=== PATIENT | male | born 1965 | race Caucasian/White ===

== ENCOUNTER → 2016-10-14 | Outpatient (CLI) | payer OTHER ==
--- NOTE | 2016-10-14 15:18 | XR ---
EXAMINATION TYPE: XR shoulder complete RT DATE OF EXAM: 10/14/2016 3:13 PM CLINICAL HISTORY: pain TECHNIQUE: Three views of the right shoulder are obtained. COMPARISON: None FINDINGS: There is no acute fracture/dislocation evident. The acromioclavicular and glenohumeral earnestine int spaces appear mildly narrowed. The visualized ribs are intact and unremarkable. IMPRESSION: 1. There is no acute fracture or dislocation. ICD 10 NO FRACTURE, INITIAL EVALUATION
--- NOTE | 2016-10-14 15:20 | XR ---
EXAMINATION TYPE: XR thoracic spine complete DATE OF EXAM: 10/14/2016 3:14 PM CLINICAL HISTORY: pain TECHNIQUE: Frontal, lateral, and swimmer's view of thoracic spine are obtained. COMPARISON: None. FINDINGS: Thoracic spine show satisfactory alignment without evidence of acute fracture or dislocatio n. Vertebral body heights are preserved. Disc spaces demonstrate mild narrowing with mild spondylosi s. Visualized ribs are unremarkable. IMPRESSION: No acute fracture or dislocation is seen in the thoracic spine. ICD 10 NO FRACTURE, INIT IAL EVALUATION
== END | disposition home or self-care (01) ==
LOC: RADXRMAIN 14:53
PROVIDERS: ATTEND Emergency Medicine
DX: S23.3XXA Sprain of ligaments of thoracic spine, initial encounter (principal); X50.0XXA Overexertion from strenuous movement or load, initial encounter
CPT/HCPCS: 72072

== ENCOUNTER → 2021-04-24 | Outpatient (CLI) | payer BC, OTHER ==
[2021-04-24 12:22] VITALS: BP 131/78; PULSE 71; TEMP 98.1; BMI 48.1
--- NOTE | 2021-04-24 15:11 | P.BASOAP ---
Subjective Progress Note Date: 04/24/21 Principal diagnosis: Morbid obesity 55-year-old male known to our service. Patient had lap band performed 2004. Over the last 8 months or so he has had increasing episodes of regurgitation and dysphagia. No abdominal pain. Patient has done fairly well with his lap band. Preoperative lap band weight 520 Kierra weight 330 early 345. Patient thinks he has 3 mL in his band which holds 10 mL. Objective - Vital Signs Vital signs: Vital Signs Temp 98.1 F 04/24/21 12:18 Pulse 71 04/24/21 12:18 Resp BP 131/78 04/24/21 12:18 Pulse Ox Intake & Output 04/23/21 04/24/21 04/24/21 18:59 06:59 18:59 Weight 156.489 kg - Exam Abdomen: Soft, nontender, nondistended Assessment/Plan (1) Morbid obesity Narrative/Plan: 55-year-old male with regurgitation and dysphagia post lap band. Will empty the patient's lap band at this time. Plan esophagram at time of follow-up 1 month or so. Patient considering band conversion. Discussed sleeve gastrectomy and gastric bypass. Favor gastric bypass in his case. All questions answered. The patient's lap band port was palpated. The site was aseptically prepped. The Cerrato needle was advanced into the port. A total of 6 ml of fluid was removed. Band is now empty. Pressure was held and a sterile dressing was applied. Patient will contact us if dysphagia or regurgitation issues persist after emptying band. Plan: Date: 04/24/21 Initial Weight: Initial BMI: Current Weight: 156.489 kg Current BMI: 48.1 Type of Surgery: Total Volume in Band: 0 Previous Volume: Volume Removed: 6 Volume Added: Band Size:
== END ==
LOC: BARWHC3 11:57
PROVIDERS: ATTEND Surgery
DX: E66.01 Morbid (severe) obesity due to excess calories (principal); R13.10 Dysphagia, unspecified; Z98.84 Bariatric surgery status; Z68.42 Body mass index [BMI] 45.0-49.9, adult; Z88.0 Allergy status to penicillin
CPT/HCPCS: 99212

== ENCOUNTER → 2021-06-21 | Outpatient (CLI) | payer BC ==
--- NOTE | 2021-06-21 13:02 | FL ---
SINGLE CONTRAST ESOPHAGRAM: CLINICAL HISTORY: 56-year-old male R13.10, dysphagia. Patient with LAP-BAND placed 15 years ago with worsening reflux. Fill removed one month ago. TECHNIQUE: Single contrast exam performed thin barium. Total fluoroscopy time: 56 seconds. Total images: 14. FINDINGS: The lap-band device is properly positioned. The patient swallowed oral contrast without difficulty or delay. Esophageal peristalsis and motility are within normal limits. Laparoscopic banding device i s noted to be in place and is appropriately positioned in proximal stomach, just below Gastroesophag eal junction. There is good flow of contrast into the proximal stomach and then along the course of the lap band. No significant restriction to the passage of contrast. IMPRESSION: Satisfactory positioning of the lap band. Normal sized gastric pouch. No significant restriction to t he passage of contrast across the lap band.
== END | disposition home or self-care (01) ==
LOC: RADUSWWP 09:23
PROVIDERS: ATTEND Surgery
DX: R13.10 Dysphagia, unspecified (principal); Z98.84 Bariatric surgery status
CPT/HCPCS: 74220

== ENCOUNTER → 2021-06-21 | Outpatient (CLI) | payer BC ==
[2021-06-21 12:30] VITALS: BP 145/86; PULSE 86; TEMP 98.2; BMI 51.0
--- NOTE | 2021-06-21 13:21 | P.BASOAP ---
Subjective Progress Note Date: 06/21/21 Principal diagnosis: Morbid obesity Patient returns for reevaluation. Last visit the patient had 6 mL removed from his lap band. That resulted in full resolution of his reflux dysphagia and vomiting symptoms. Still feels mild fullness around his port site. Today's upper GI shows no evidence of obstruction. Patient is interested in band adjustment at this time. Objective - Vital Signs Vital signs: Vital Signs Temp 98.2 F 06/21/21 12:28 Pulse 86 06/21/21 12:28 Resp BP 145/86 06/21/21 12:28 Pulse Ox Intake & Output 06/20/21 06/21/21 06/21/21 18:59 06:59 18:59 Weight 166.015 kg - Exam Abdomen: Soft, nontender, nondistended Assessment/Plan (1) Morbid obesity Narrative/Plan: Patient doing well after entering the patient's band last visit. 3 mL will be added back to the band at this time. Patient and his are considering gastric bypass given the difficulties he has had with the band both then terms of poor weight loss and aggressive dysphagia. They will notify me with their decision. Plan: Date: 06/21/21 Initial Weight: Initial BMI: Current Weight: 166.015 kg Current BMI: 51.0 Type of Surgery: Total Volume in Band: 0 Previous Volume: Volume Removed: Volume Added: Band Size:
== END ==
LOC: BARWHC3 12:14
PROVIDERS: ATTEND Surgery
DX: E66.01 Morbid (severe) obesity due to excess calories (principal); Z68.43 Body mass index [BMI] 50.0-59.9, adult; Z88.0 Allergy status to penicillin
CPT/HCPCS: 99212

== ENCOUNTER → 2023-03-13 | Outpatient (CLI) | payer BC ==
--- NOTE | 2023-03-15 14:15 | MR ---
EXAMINATION TYPE: MR brain and iac wo/w con DATE OF EXAM: 03/13/2023 COMPARISON: None HISTORY: Tinnitus right ear, hearing loss bilateral, possible tumor TECHNIQUE: Multiplanar, multisequence images of the brain and brainstem is performed without and with IV contras t, utilizing 15 mL intravenous Gadavist . FINDINGS: The T1-weighted sagittal images midline structures including the craniovertebral junction relationshi ps appear normal. The ventricles, basal cisterns and sulci over convexities are within normal limits and there is no ma ss effect or shift of midline structures. There are a few tiny abnormal foci of abnormal signal intensity in the white matter both cerebral hem ispheres and within the left midbrain consistent with chronic ischemic white matter demyelination. Based on diffusion-weighted imaging, there is no acute ischemic event. There is diffuse enhancement of the right seventh/8th nerve within the internal auditory canal consis tent with an acoustic neuroma. There is no cerebellopontine angle mass. The left internal auditory ca nal and contents are normal. There is no pathological enhancement throughout the cerebral hemispheres or cerebellar hemispheres. The intraorbital contents appear normal and symmetric. Visualized paranasal sinuses and mastoid air cells are well aerated. IMPRESSION: Findings consistent with an acoustic neuroma of the right seventh/8th nerve complex within the right internal auditory canal.
== END | disposition home or self-care (01) ==
LOC: RADMRIMAIN 17:15
PROVIDERS: ATTEND Otolaryngology Otology & Neurotology
DX: H93.11 Tinnitus, right ear (principal); H90.3 Sensorineural hearing loss, bilateral
CPT/HCPCS: 70553; A9585

== ENCOUNTER → 2023-06-04 | Outpatient (CLI) | payer BC ==
[2023-06-04 14:44] VITALS: BP 136/86; PULSE 86; RESP 16; TEMP 98.6; BMI 56.7
--- NOTE | 2023-06-04 15:17 | P.HPBAR ---
Bariatric H&P - History & Physicial H&P Date: 06/04/23 History & Physicial: Visit/CC: Wanting band out Patient initial contact: Initial weight: 235.868 kg Initial weight in pounds: 520.00 Height: 5 ft 9 in Initial BMI: 76.8 Last weight: Current weight: 174.179 kg Current weight in pounds: 384.00 Current BMI: 56.7 Kuna body weight (based on NIH guidelines): 72.575 kg Excess body weight loss: 37.7% The patient is a 57 year-old M who presents for Bariatric Assessment. DATE OF SERVICE: 06/04/23 REASON FOR CONSULTATION: Initial bariatric evaluation. HISTORY OF PRESENT ILLNESS: Zechariah Lynch is a 58-year-old male who comes with lifelong morbid obesity. He has the gastric band for over 20 years. He wants the gastric bypass. He reports no success with band. He was 500 pounds and lost 200 pounds with lap band and gained weight during COVID. He has osteoarthritis of the knees and back. He has diabetes and is on metformin with diarrhea. He has as intolerance to adjustments of adjustable gastric band. He had prior upper scope. He reports rate clerk restriction. Last colonoscopy was is every 3 years for family history of colon cancer. He denies polyps. He reports no gallbladder. He has sleep apnea but does not have a CPAP machine. He wanted the sleeve initially but was advised to consider additional options for gastric bypass.. He wants weight loss. He wants to be 250 to 300 pounds. He denies dysphagia. He presents to me first time in consultation. He reports personal history of elevated LFTs. At height of 5 feet 9 inches, ideal body weight is 168 pounds. He comes in 383 pounds. Highest weight was 500 pounds with body mass index 74.0. Current body mass index is 56.7. He is 249 pounds overweight. PAST MEDICAL HISTORY: 1. Morbid obesity due to excess calories 2. Body mass index of 74.0 down to 56.7 3. Osteoarthritis of the knees. 4. Osteoarthritis of the lower back. 5. Diabetes type 2 6. Obstructive sleep apnea 7. Gastroesophageal reflux disease 8. Hypertensive heart disease PAST SURGICAL HISTORY: 1. Cholecystectomy 2. Adjustable gastric band placement, 2003 3. Repair of fractured female pelvic HOME MEDICATIONS: Home Medications Medication Instructions Recorded Confirmed Semaglutide [Rybelsus] 7 mg PO DAILY 06/04/23 06/04/23 ALLERGIES: Allergies Allergy/AdvReac Type Severity Reaction Status Date / Time Penicillins Allergy Dyspnea Verified 04/23/21 12:59 SOCIAL HISTORY: Past tobacco use. FAMILY HISTORY: No family history of ulcerative colitis disease or Crohn's disease. Family history of morbid obesity. No lupus in the family. No reports of stomach or esophageal cancer. REVIEW OF ORGAN SYSTEMS: CONSTITUTIONAL: At height of 5 feet 9 inches, ideal body weight is 168 pounds. He comes in 383 pounds. Highest weight was 500 pounds with body mass index 74.0. Current body mass index is 56.7. He is 249 pounds overweight. HEENT: Denies any active troubles with vision or hearing. ENDOCRINE: Has diabetes. No hypothyroidism. CARDIOVASCULAR: Past reports of palpitations or heart attacks or chest pain. Hypertensive heart disease RESPIRATORY: Has daytime somnolence. Denies chronic obstructive pulmonary disease. Obstructive sleep apnea GASTROINTESTINAL: Denies any bright red blood per rectum. No diarrhea. No constipation. Has gastroesophageal reflux disease. GENITOURINARY: Denies bladder urgency. No recent blood in urine MUSCULOSKELETAL: Has lower back pain and joint pain. Has osteoarthritis of the knees. NEURO: No headaches. No seizure disorders. PSYCH: Denies depression. No suicidal ideation. RHEUMATOLOGIC: No lupus. No rheumatoid arthritis. HEMATOLOGIC: Denies any abnormal bleeding or bruising. Denies past history of DVTs. SKIN: No rash. No skin cancer. PHYSICAL EXAM: VITAL SIGNS: Height 5 foot 9 inches, weight 384 pounds. BMI 56.7 Vital Signs Temp 98.6 F 06/04/23 14:28 Pulse 86 06/04/23 14:28 Resp 16 06/04/23 14:28 BP 136/86 06/04/23 14:28 Pulse Ox FiO2 GENERAL: Well-developed in no acute distress. HEENT: No scleral icterus. Extraocular movements grossly intact. Hears conversational speech. No nasal drainage. NECK: Supple without lymphadenopathy. CHEST: Nonlabored respirations with equal bilateral excursions. CARDIOVASCULAR: Regular rate and regular rhythm. Distal 2+ pulses. ABDOMEN: Obese, soft, nontender, nondistended. MUSCULOSKELETAL: No clubbing, cyanosis. NEURO: No focal or lateralizing signs. Cranial nerves 2 through 12 grossly within normal limits. PSYCH: Appropriate affect. Alert and oriented to person, place and time. SKIN: Good skin turgor. Well perfused. ASSESSMENT: 1. Morbid obesity due to excess calories 2. Body mass index of 74.0 down to 56.7 3. Osteoarthritis of the knees. 4. Osteoarthritis of the lower back. 5. Diabetes type 2 6. Obstructive sleep apnea 7. Gastroesophageal reflux disease 8. Hypertensive heart disease 9. Complications from adjustable gastric band 10. Elevated LFTs PLAN: 1. Surgical options including band, gastric bypass, sleeve gastrectomy were described in detail. Alternatives such as gastric balloon including duodenal switch were described. He is looking into the gastric bypass. 2. The [place] [facility]ariat[facility] collaborative data and outcomes available 3. Recommend a bariatric metabolic panel to evaluate for micro- including macronutrient deficiencies. 4. For history of daytime somnolence, recommend evaluation and treatment for sleep apnea. 5. Dietary surveillance and counseling was reviewed. Increased protein intake over 65 grams daily advised. 6. Will need cardiac risk assessment. 7. Recommend medical risk assessment. 8. Psych assessment per insurance guidelines. 9. Recommend upper endoscopy. 10. Recommend 12-lead EKG. 11. Recommend esophagram for gastroesophageal reflux disease. Upper scope later depending esophagram. 12. Recommend full urine metabolites testing 13. For elevated LFTs, recommend liver ultrasound for cirrhosis Thank you for this consultation. Past Medical History Past Medical History: GERD/Reflux, Hypertension, Osteoarthritis (OA) History of Any Multi-Drug Resistant Organisms: None Reported Past Surgical History: Bariatric Surgery, Cholecystectomy, Orthopedic Surgery Additional Past Surgical History / Comment(s): lap band 2004. repair of fractured femur and pelvis Past Anesthesia/Blood Transfusion Reactions: No Reported Reaction Past Psychological History: No Psychological Hx Reported Smoking Status: Never smoker Past Alcohol Use History: Rare Past Drug Use History: None Reported Surgical - Exam Vital Signs Temp Pulse Resp BP 98.6 F 86 16 136/86 06/04/23 14:28 06/04/23 14:28 06/04/23 14:28 06/04/23 14:28 Bariatric Checklist Checklist: Plan: Checklist: EGD: 1. Hiatal hernia: 2. H. Pylori: HgbA1c: Vitamin D: Smoking: Primary care physician referral: dr alonso Psychiatry clearance: Cardiology clearance: Sleep study: Diet journal: VTE risk score: VTE risk level: Rehab needs at discharge:
== END ==
LOC: BARWHC3 13:21
PROVIDERS: ATTEND Surgery Plastic and Reconstructive Surgery
DX: E66.01 Morbid (severe) obesity due to excess calories (principal); M17.0 Bilateral primary osteoarthritis of knee; M47.816 Spondylosis without myelopathy or radiculopathy, lumbar region; E11.9 Type 2 diabetes mellitus without complications; G47.33 Obstructive sleep apnea (adult) (pediatric); K21.9 Gastro-esophageal reflux disease without esophagitis; I11.0 Hypertensive heart disease with heart failure; Z68.43 Body mass index [BMI] 50.0-59.9, adult; Z88.0 Allergy status to penicillin
CPT/HCPCS: 99211

== ENCOUNTER → 2023-06-26 | Outpatient (CLI) | payer BC ==
--- NOTE | 2023-06-26 15:57 | US ---
EXAMINATION TYPE: US liver DATE OF EXAM: 06/26/2023 COMPARISON: NONE CLINICAL INDICATION: Male, 58 years old with history of R10, R1310 ABD PAIN; abnormal labs TECHNIQUE: Multiple sonographic images of the right upper quadrant are obtained. FINDINGS: EXAM MEASUREMENTS: Liver Length: 20.5 cm Gallbladder: Surgically absent CBD: .9 cm Right Kidney: 10.6 x 5.2 x 6.0 cm Pancreas: Obscured by bowel gas Liver: Increased attenuation, hepatomegaly Gallbladder: Surgically absent Evidence for sonographic Riddle's sign: No CBD: Dilated. Right Kidney: No hydronephrosis or masses seen IMPRESSION: 1. Hepatomegaly of 20.5 cm with probable moderate to severe hepatic steatosis. Correlate with LFTs, l ipid profile, and patient risk factors. Appropriate clinical management is advised. 2. Dilated bile duct at 9 mm likely due to postcholecystectomy status. Correlate with alkaline phosph atase and bilirubin levels.
== END | disposition home or self-care (01) ==
LOC: RADUSWWP 15:14
PROVIDERS: ATTEND Surgery Plastic and Reconstructive Surgery
DX: R16.0 Hepatomegaly, not elsewhere classified (principal); K83.8 Other specified diseases of biliary tract; R10.0 Acute abdomen; R13.10 Dysphagia, unspecified
CPT/HCPCS: 76705

== ENCOUNTER → 2023-06-26 | Outpatient (CLI) | payer BC ==
[2023-06-26 16:09] LABS: Partial Thromboplastin Time 25.3 sec (22.0-30.0); Prothrombin Time 11.4 sec (10.0-12.5)
[2023-06-26 18:23] LABS: HCT 44.6 % (39.6-50.0); HGB 15.5 g/dL (13.0-17.0); MCH 30.5 pg (27.0-32.0); MCHC 34.8 g/dL (32.0-37.0); MCV 87.8 FL (80.0-97.0); Mean Platelet Volume 10.7 FL (9.5-12.2); NRBC Per 100 WBC 0 X 10*3/uL (0.00-0.01); Platelet Count 137 X 10*3/uL (140-440); RBC 5.08 X 10*6/uL (4.40-5.60); RDW 12.4 % (11.5-14.5); WBC 7.48 X 10*3/uL (4.50-10.00)
[2023-06-26 18:48] LABS: % Iron Saturation 42.04 (15.00-50.00); ALT 68 U/L (10-49); AST 78 U/L (14-35); Albumin 3.9 g/dL (3.8-4.9); Alkaline Phosphatase 117 U/L (41-126); BUN/Creat Ratio 17.29 Ratio (12.00-20.00); Blood Urea Nitrogen 12.1 mg/dL (9.0-27.0); Calcium 9.2 mg/dL (8.7-10.3); Carbon Dioxide 26.2 mmol/L (21.6-31.8); Chloride 99 mmol/L (96-109); Chol/HDL Ratio 4.08 Ratio; Globulin 2.6 g/dL (1.6-3.3); Glucose 202 mg/dL (70-110); Iron 132 UG/DL (65-175); LDL Cholesterol,Calculated 129.6 mg/dL (0.0-131.0); Magnesium 1.8 mg/dL (1.5-2.4); Phosphorus 3.2 mg/dL (2.4-5.1); Potassium 4.1 mmol/L (3.5-5.5); Sodium 138 mmol/L (135-145); Total Bilirubin 1.1 mg/dL (0.3-1.2); Total Iron Binding Capacity 314 UG/DL (228-460); Total Protein 6.5 g/dL (6.2-8.2)
[2023-06-27 13:11] LABS: Zinc, Serum 74 ug/dL (60-130)
== END | disposition home or self-care (01) ==
LOC: LABWHC1 14:32
PROVIDERS: ATTEND Surgery Plastic and Reconstructive Surgery
DX: I44.4 Left anterior fascicular block (principal); E66.01 Morbid (severe) obesity due to excess calories; E89.1 Postprocedural hypoinsulinemia; D50.8 Other iron deficiency anemias; K91.2 Postsurgical malabsorption, not elsewhere classified; E44.0 Moderate protein-calorie malnutrition; E44.1 Mild protein-calorie malnutrition; E45 Retarded development following protein-calorie malnutrition; E55.9 Vitamin D deficiency, unspecified; K74.1 Hepatic sclerosis; N19 Unspecified kidney failure; T56.894A Toxic effect of other metals, undetermined, initial encounter; R94.31 Abnormal electrocardiogram [ECG] [EKG]
CPT/HCPCS: 36415; 80053; 80061; 80307; 80323; 82306; 82525; 82607; 82728; 82746; 83036; 83540; 83550; 83735; 83970; 84100; 84134; 84255; 84425; 84443; 84590; 84630; 85027; 85610; 85730; 93005

== ENCOUNTER → 2023-06-30 | Outpatient (CLI) | payer BC ==
--- NOTE | 2023-06-30 16:07 | FL ---
EXAMINATION TYPE: FL barium swallow DATE OF EXAM: 06/30/2023 CLINICAL INDICATION: 58-year-old male R13.10, dysphagia, patient with lap band 14 years ago, drained one year ago due to vomiting. Workup for conversion to Patel-en-Y gastric bypass. COMPARISON: None Total fluoroscopy time: 48 seconds Total images: 16 DOSE AREA PRODUCT (DAP) UGY*M,MGY*CM: 545.5 FINDINGS: The patient swallowed oral contrast without difficulty or delay. There is normal course, caliber, and peristalsis of the thoracic esophagus. Single contrast technique limited for detailed assessment of the mucosa. Some images suggest a tiny hiatal hernia. A lap band device is present, appropriately positioned. There is prompt passage of contrast across th e lap band with only minimal restriction in flow. IMPRESSION: 1. Lap band device in place and appropriately positioned. Only minimal restriction in flow of contras t across the lap band. 2. A tiny hiatal hernia suggested on some of the images.
== END | disposition home or self-care (01) ==
LOC: RADUSWWP 10:51
PROVIDERS: ATTEND Surgery Plastic and Reconstructive Surgery
DX: K44.9 Diaphragmatic hernia without obstruction or gangrene (principal); Z46.51 Encounter for fitting and adjustment of gastric lap band; R13.10 Dysphagia, unspecified
CPT/HCPCS: 74220

== ENCOUNTER 2023-09-01 06:36 | Day surgery (SDC) | payer BC ==
[2023-08-28 11:32] VITALS: BMI 54.3
[~2023-09-01 06:36] MED LIST: LACTATED RINGERS 1,000 ML IV SCH
[2023-09-01 07:16] VITALS: TEMP 97.5
[2023-09-01] MEDS: LACTATED RINGERS 1,000 ML IV ONE ×2 (07:26→08:00)
[2023-09-01] MEDS ORDERED: LIDOCAINE 1% INJ 10MG/ML (20 ML MDV) ONE (07:31)
[2023-09-01] MEDS ORDERED: GLYCOPYRROLATE 0.2 MG/ML 2 ML VIAL ONE (07:31)
[2023-09-01] MEDS ORDERED: PROPOFOL 10 MG/ML 20 ML VIAL IV ONE (07:31)
[2023-09-01] MEDS ORDERED: KETAMINE HCL IN 0.9 % NACL 50 MG/5 ML SYRINGE ONE (07:31)
--- NOTE | 2023-09-01 07:33 | P.GSHP ---
History of Present Illness H&P Date: 09/01/23 CHIEF COMPLAINT: GERD and colon screen HISTORY OF PRESENT ILLNESS: The patient is a 58-year-old male who presents with gastroesophageal reflux disease and need for colon screen. Upper and lower endoscopy were offered for further evaluation and management. PAST MEDICAL HISTORY: Please see list. PAST SURGICAL HISTORY: Please see list. MEDICATIONS: Please see list. ALLERGIES: Please see list. SOCIAL HISTORY: No illicit drug use FAMILY HISTORY: No reports of Crohn disease or ulcerative colitis. REVIEW OF ORGAN SYSTEMS: CONSTITUTIONAL: No reports of fevers or chills. GI: Denies any blood in stools or constipation. PHYSICAL EXAM: VITAL SIGNS: Stable GENERAL: Well-developed pleasant in no acute distress. HEENT: No scleral icterus. Extraocular movements grossly intact. Moist buccal mucosa. NECK: Supple without lymphadenopathy. CHEST: Unlabored respirations. Equal bilateral excursions. CARDIOVASCULAR: Regular rate and rhythm. Distal 2+ pulses. ABDOMEN: Soft, nondistended. MUSCULOSKELETAL: No clubbing, cyanosis, or edema. ASSESSMENT: 1. Gastroesophageal reflux disease 2. Colon screen. PLAN: 1. Recommend proceeding with an upper and lower endoscopy Past Medical History Past Medical History: GERD/Reflux, Hypertension, Liver Disease, Osteoarthritis (OA), Pneumonia, Sleep Apnea/CPAP/BIPAP Additional Past Medical History / Comment(s): bronchitis chronic, may 01 pneumonia walking, fatty liver History of Any Multi-Drug Resistant Organisms: None Reported Past Surgical History: Adenoidectomy, Bariatric Surgery, Cholecystectomy, Orthopedic Surgery, Tonsillectomy Additional Past Surgical History / Comment(s): lap band 2003. repair of fractured femur and pelvis Past Anesthesia/Blood Transfusion Reactions: No Reported Reaction Additional Past Anesthesia/Blood Transfusion Reaction / Comment(s): no blood transfusion Smoking Status: Never smoker - Past Family History Father Family Medical History: Cancer Additional Family Medical History / Comment(s): colon Medications and Allergies Home Medications Medication Instructions Recorded Confirmed Type Semaglutide [Rybelsus] 14 mg PO DAILY 06/04/23 09/01/23 History Allergies Allergy/AdvReac Type Severity Reaction Status Date / Time Penicillins Allergy Dyspnea Verified 09/01/23 07:06 morphine AdvReac Hallucinati Verified 09/01/23 07:06 ons Surgical - Exam Vital Signs Temp Pulse Resp BP Pulse Ox 97.5 F L 78 20 129/68 99 09/01/23 06:58 09/01/23 06:58 09/01/23 06:58 09/01/23 06:58 09/01/23 06:58
[2023-09-01 07:38] LABS: Glucose,Whole Blood 164 mg/dL (70-110)
--- NOTE | 2023-09-01 08:01 | P.PCN ---
Date of Procedure: 09/01/23 Description of Procedure: PREOPERATIVE DIAGNOSIS: Colonoscopy screening. POSTOPERATIVE DIAGNOSIS: Colonoscopy screening. Diverticulosis, scattered. Arteriovenous malformation OPERATION: Colonoscopy to the cecum, ileocecal valve and appendiceal orifice. SURGEON: Mary Millard MD. ANESTHESIA: MAC. INDICATIONS: The patient is a 61-year-old female who presents for colonoscopy screening. Benefits and risks were described and informed consent was obtained. DESCRIPTION OF PROCEDURE: The patient had undergone Sutab prep. The patient had been brought into the operating room and laid in the left lateral decubitus position. After adequate intravenous sedation, the rectum was examined with 2% lidocaine jelly. No external hemorrhoids were encountered. The rectal tone was within normal limits. No lesions were palpated in the rectal vault. An Olympus colonoscope was advanced until the cecum, ileocecal valve and appendiceal orifice were clearly viewed. The prep was fair. Scattered diverticulosis was encountered. No colonic polyps were found. No evidence of focal colitis was found. Retroflexion of the scope demonstrated grade 1 internal hemorrhoids without active bleeding or inflammation. The colon was desufflated. The patient had tolerated the procedure well. Withdrawal time was over 6 minutes. FINDINGS: Aronchick preparation quality scale 2+ (1-5) Internal hemorrhoids, grade 1 No external prolapsed hemorrhoids. Arteriovenous malformations, 3 mm, mid transverse colon without bleeding No adenomatous polyps. No focal colitis. Sigmoid diverticulosis RECOMMENDATIONS: Lower endoscopy 10 years2033 Plan - Discharge Summary Discharge Rx Participant: No New Discharge Prescriptions: Continue Semaglutide [Rybelsus] 14 mg PO DAILY Discharge Medication List Semaglutide [Rybelsus] 14 mg PO DAILY 06/04/23 [History] Follow [facility]Ref[facility] [facility] [place] [place] [facility] [place] [facility] Patient Instructions/Handouts: *Surgery [facility] - (Anesthesia) Discharge Instructions Outpatient Surgery, Diverticulosis Diet (GEN), Gastritis (DC), GERD (Gastroesophageal Reflux Disease) (DC), Charles Esophagus (DC) Activity/Diet/Wound Care/Special Instructions: Repeat colonoscopy in 2033 Discharge Disposition: HOME SELF-CARE
--- NOTE | 2023-09-01 08:03 | P.PCN ---
Date of Procedure: 09/01/23 Description of Procedure: PREOPERATIVE DIAGNOSIS: Gastroesophageal reflux disease. Morbid obesity. POSTOPERATIVE DIAGNOSIS: Gastroesophageal reflux disease. Morbid obesity. Gastritis. Charles's esophagus Diaphragmatic hiatal hernia OPERATION: Esophagogastroduodenoscopy with biopsies along esophagus, antrum and duodenum SURGEON: Mary Millard MD ANESTHESIA: MAC. INDICATIONS: The patient is a 58-year-old male who presents with reflux disease. Benefits and risks of the procedure were described. Informed consent was obtained. DESCRIPTION: The patient was brought into the endoscopy suite and laid in the left lateral decubitus position. An Olympus gastroscope was passed along the posterior kady pharynx down to the distal esophagus where the squamocolumnar junction was encountered at 40 cm from the incisors. The stomach was entered and no bile reflux was found. Additional findings are listed below. Biopsies with cold forceps were obtained of the antrum. The first through third portion of the duodenum was examined. Retroflexion of the scope confirmed Hill grade 2 lower esophageal valve. The squamocolumnar junction demonstrated LA grade D erosive esophagitis. The stomach was desufflated. The patient tolerated the procedure well. FINDINGS: Squamocolumnar junction 40 cm from the incisors. Diaphragmatic hiatus at 41 cm. Hiatal hernia, 1 cm Hill grade 2 lower esophageal valve. LA grade D erosive esophagitis. Biopsies obtained Biopsies obtained of the duodenum. Chronic gastritis with biopsies obtained. Few gastric polyps, 2 mm at gastric fundus RECOMMENDATIONS: Upper endoscopy as needed.
[2023-09-01 08:09] LABS: Glucose,Whole Blood 155 mg/dL (70-110)
[2023-09-01 08:27] VITALS: RESP 16
[2023-09-01 09:05] VITALS: BP 138/85; PULSE 69
== END 2023-09-01 09:09 | disposition home or self-care (01) ==
LOC: ORWHC2ENDO 06:36
PROVIDERS: ATTEND Surgery Plastic and Reconstructive Surgery
DX: Z12.11 Encounter for screening for malignant neoplasm of colon (principal); K29.50 Unspecified chronic gastritis without bleeding; K44.9 Diaphragmatic hernia without obstruction or gangrene; K22.70 Barrett's esophagus without dysplasia; K21.00 Gastro-esophageal reflux disease with esophagitis, without bleeding; K64.0 First degree hemorrhoids; K57.30 Diverticulosis of large intestine without perforation or abscess without bleeding; K63.89 Other specified diseases of intestine; E66.01 Morbid (severe) obesity due to excess calories; I10 Essential (primary) hypertension; K76.0 Fatty (change of) liver, not elsewhere classified; J42 Unspecified chronic bronchitis; M19.90 Unspecified osteoarthritis, unspecified site; G47.33 Obstructive sleep apnea (adult) (pediatric); Z79.899 Other long term (current) drug therapy; Z80.0 Family history of malignant neoplasm of digestive organs; Z88.0 Allergy status to penicillin; Z88.5 Allergy status to narcotic agent; Z90.49 Acquired absence of other specified parts of digestive tract; Z98.84 Bariatric surgery status; Z79.84 Long term (current) use of oral hypoglycemic drugs; Z68.43 Body mass index [BMI] 50.0-59.9, adult
CPT/HCPCS: 88305; 45378; 43239; J2001; J2704

== ENCOUNTER → 2023-09-24 | Outpatient (CLI) | payer BC ==
[2023-09-24 14:51] VITALS: BP 144/84; PULSE 82; TEMP 98.2; BMI 56.8
--- NOTE | 2023-09-24 15:10 | P.BASOAP ---
Subjective Progress Note Date: 09/24/23 Patient has a band complication. Recommend band removal. Anticipated time for October 12. Patient reports poor pain tolerance. Objective - Vital Signs Vital signs: Vital Signs Temp 98.2 F 09/24/23 14:13 Pulse 82 09/24/23 14:13 Resp BP 144/84 09/24/23 14:13 Pulse Ox FiO2 Intake & Output 09/23/23 09/24/23 09/24/23 18:59 06:59 18:59 Weight 174.633 kg Assessment/Plan Plan: Date: 09/24/23 Initial Weight: 235.868 kg Initial BMI: 76.8 Current Weight: 174.633 kg Current BMI: 56.8 Type of Surgery: Total Volume in Band: 3 Previous Volume: Volume Removed: Volume Added: Band Size:
== END | disposition home or self-care (01) ==
LOC: BARWHC3 13:05
PROVIDERS: ATTEND Surgery Plastic and Reconstructive Surgery
DX: E66.01 Morbid (severe) obesity due to excess calories (principal); K95.09 Other complications of gastric band procedure; K21.9 Gastro-esophageal reflux disease without esophagitis; Z88.0 Allergy status to penicillin; Z88.5 Allergy status to narcotic agent; Z68.43 Body mass index [BMI] 50.0-59.9, adult
CPT/HCPCS: 99211

== ENCOUNTER → 2023-10-02 | Outpatient (CLI) | payer OTHER ==
--- NOTE | 2023-10-07 12:08 | MR ---
EXAMINATION TYPE: MR knee RT wo con DATE OF EXAM: 10/02/2023 COMPARISON: None available HISTORY: Rt knee pain after tripping TECHNIQUE: Multiplanar, multisequence imaging of the right knee is performed without contrast. FINDINGS: Medial meniscus: Radial tear of the posterior horn. Medial compartment cartilage: High-grade thinning and fissuring throughout the medial compartment car tilage. Medial collateral ligament: Intact. Lateral meniscus: Intact. Lateral compartment cartilage: Partial-thickness thinning of the lateral compartment cartilage. Lateral collateral ligament: Intact. Patellofemoral alignment: Normal. Patellofemoral compartment cartilage: High-grade thinning and fissuring in the patellofemoral cartila ge. Extensor mechanism: Normal. Anterior cruciate ligament: Intact. Posterior cruciate ligament: Intact. Bone marrow: Normal. Soft tissues: Normal. No joint effusion. Trace Triana's cyst. Neurovascular: Large medial varicose veins. IMPRESSION: 1. Medial meniscus posterior horn radial tear. 2. Tricompartmental osteoarthrosis, high-grade thinning and fissuring of the medial and patellofemora l cartilage.
== END | disposition home or self-care (01) ==
LOC: RADMRIMAIN 08:11
PROVIDERS: ATTEND Orthopaedic Surgery Sports Medicine
DX: S83.241A Other tear of medial meniscus, current injury, right knee, initial encounter (principal); M17.11 Unilateral primary osteoarthritis, right knee; X58.XXXA Exposure to other specified factors, initial encounter

== ENCOUNTER → 2023-10-08 | Outpatient (CLI) | payer BC ==
[2023-10-09 02:23] LABS: Basophils # (A) 0.06 X 10*3/uL (0.00-0.10); Basophils % (A) 0.6 %; Eosinophils # (A) 0.24 X 10*3/uL (0.04-0.35); Eosinophils % (A) 2.4 %; HCT 46.8 % (39.6-50.0); HGB 15.9 g/dL (13.0-17.0); Lymphocytes # (A) 2.21 X 10*3/uL (0.90-5.00); Lymphocytes % (A) 21.8 %; MCH 29.8 pg (27.0-32.0); MCV 87.8 FL (80.0-97.0); Mean Platelet Volume 10.7 FL (9.5-12.2); Monocytes # (A) 0.66 X 10*3/uL (0.20-1.00); Monocytes % (A) 6.5 %; NRBC Per 100 WBC 0 X 10*3/uL (0.00-0.01); Neutrophils # (A) 6.92 X 10*3/uL (1.80-7.70); Neutrophils % (A) 68.3 %; Platelet Count 152 X 10*3/uL (140-440); RBC 5.33 X 10*6/uL (4.40-5.60); RDW 12.7 % (11.5-14.5); WBC 10.13 X 10*3/uL (4.50-10.00)
[2023-10-09 02:56] LABS: ALT 58 U/L (10-49); AST 62 U/L (14-35); Albumin/Globulin Ratio 1.43 Ratio (1.60-3.17); Alkaline Phosphatase 111 U/L (41-126); Blood Urea Nitrogen 11.2 mg/dL (9.0-27.0); Calcium 9.1 mg/dL (8.7-10.3); Carbon Dioxide 28.8 mmol/L (21.6-31.8); Chloride 98 mmol/L (96-109); Globulin 2.8 g/dL (1.6-3.3); Glucose 224 mg/dL (70-110); Potassium 3.9 mmol/L (3.5-5.5); Sodium 138 mmol/L (135-145); Total Bilirubin 0.8 mg/dL (0.3-1.2); Total Protein 6.8 g/dL (6.2-8.2)
== END | disposition home or self-care (01) ==
LOC: LABPAT 15:35
PROVIDERS: ATTEND Surgery Plastic and Reconstructive Surgery
DX: Z01.812 Encounter for preprocedural laboratory examination (principal)
CPT/HCPCS: 80053; 85025

== ENCOUNTER 2023-10-13 11:55 | Day surgery (SDC) | payer BC ==
--- NOTE | 2023-10-13 06:42 | P.GSHP ---
History of Present Illness H&P Date: 10/13/23 CHIEF COMPLAINT: Morbid obesity HISTORY OF PRESENT ILLNESS: Zechariah Lynch is a 58-year-old male who comes with lifelong morbid obesity. He has the gastric band for over 20 years. He was 500 pounds and lost 200 pounds with lap band and gained weight during COVID. He has osteoarthritis of the knees and back. He has diabetes and is on metformin with diarrhea. He has as intolerance to adjustments of adjustable gastric band. He has sleep apnea but does not have a CPAP machine. He presents with severe gastroesophageal reflux disease with early findings of possible Charles's esophagus. Presents with complications from his adjustable gastric band and seeking removal. At height of 5 feet 9 inches, ideal body weight is 168 pounds. He comes in 383 pounds. Highest weight was 500 pounds with body mass index 74.0. Current body mass index is 56.7. He is 249 pounds overweight. PAST MEDICAL HISTORY: 1. Morbid obesity due to excess calories 2. Body mass index of 74.0 down to 56.7 3. Osteoarthritis of the knees. 4. Osteoarthritis of the lower back. 5. Diabetes type 2 6. Obstructive sleep apnea 7. Gastroesophageal reflux disease 8. Hypertensive heart disease PAST SURGICAL HISTORY: 1. Cholecystectomy 2. Adjustable gastric band placement, 2003 3. Repair of fractured female pelvic HOME MEDICATIONS: Home Medications Medication Instructions Recorded Confirmed Semaglutide [Rybelsus] 7 mg PO DAILY 06/04/23 06/04/23 ALLERGIES: Allergies Allergy/AdvReac Type Severity Reaction Status Date / Time Penicillins Allergy Dyspnea Verified 04/23/21 12:59 SOCIAL HISTORY: Past tobacco use. FAMILY HISTORY: No family history of ulcerative colitis disease or Crohn's disease. Family history of morbid obesity. No lupus in the family. No reports of stomach or esophageal cancer. REVIEW OF ORGAN SYSTEMS: CONSTITUTIONAL: At height of 5 feet 9 inches, ideal body weight is 168 pounds. He comes in 383 pounds. Highest weight was 500 pounds with body mass index 74.0. Current body mass index is 56.7. He is 249 pounds overweight. HEENT: Denies any active troubles with vision or hearing. ENDOCRINE: Has diabetes. No hypothyroidism. CARDIOVASCULAR: Past reports of palpitations or heart attacks or chest pain. Hypertensive heart disease RESPIRATORY: Has daytime somnolence. Denies chronic obstructive pulmonary disease. Obstructive sleep apnea GASTROINTESTINAL: Denies any bright red blood per rectum. No diarrhea. No constipation. Has gastroesophageal reflux disease. GENITOURINARY: Denies bladder urgency. No recent blood in urine MUSCULOSKELETAL: Has lower back pain and joint pain. Has osteoarthritis of the knees. NEURO: No headaches. No seizure disorders. PSYCH: Denies depression. No suicidal ideation. RHEUMATOLOGIC: No lupus. No rheumatoid arthritis. HEMATOLOGIC: Denies any abnormal bleeding or bruising. Denies past history of DVTs. SKIN: No rash. No skin cancer. PHYSICAL EXAM: VITAL SIGNS: Height 5 foot 9 inches, weight 384 pounds. BMI 56.7 GENERAL: Well-developed in no acute distress. HEENT: No scleral icterus. Extraocular movements grossly intact. Hears conversational speech. No nasal drainage. NECK: Supple without lymphadenopathy. CHEST: Nonlabored respirations with equal bilateral excursions. CARDIOVASCULAR: Regular rate and regular rhythm. Distal 2+ pulses. ABDOMEN: Obese, soft, nontender, nondistended. MUSCULOSKELETAL: No clubbing, cyanosis. NEURO: No focal or lateralizing signs. Cranial nerves 2 through 12 grossly within normal limits. PSYCH: Appropriate affect. Alert and oriented to person, place and time. SKIN: Good skin turgor. Well perfused. ASSESSMENT: 1. Morbid obesity due to excess calories 2. Body mass index of 74.0 down to 56.7 3. Osteoarthritis of the knees. 4. Osteoarthritis of the lower back. 5. Diabetes type 2 6. Obstructive sleep apnea 7. Gastroesophageal reflux disease 8. Hypertensive heart disease 9. Complications from adjustable gastric band 10. Elevated LFTs PLAN: 1. Recommend removal of adjustable gastric band due to complications and intolerance to adjustments. 2. He is elevated risk for complications due to BMI over 50 as well as multiple comorbidities Past Medical History Past Medical History: Diabetes Mellitus, GERD/Reflux, Hypertension, Liver Disease, Osteoarthritis (OA), Pneumonia, Sleep Apnea/CPAP/BIPAP Additional Past Medical History / Comment(s): bronchitis chronic, may 01 pneumonia walking, fatty liver no cpap used History of Any Multi-Drug Resistant Organisms: None Reported Past Surgical History: Adenoidectomy, Bariatric Surgery, Cholecystectomy, Orthopedic Surgery, Tonsillectomy Additional Past Surgical History / Comment(s): lap band 2003. repair of fra ctured femur and pelvis Past Anesthesia/Blood Transfusion Reactions: No Reported Reaction Additional Past Anesthesia/Blood Transfusion Reaction / Comment(s): no blood transfusion Smoking Status: Never smoker - Past Family History Father Family Medical History: Cancer Additional Family Medical History / Comment(s): colon Medications and Allergies Home Medications Medication Instructions Recorded Confirmed Type Semaglutide [Rybelsus] 14 mg PO DAILY 06/04/23 10/08/23 History Omeprazole [PriLOSEC] 40 mg PO DAILY #30 cap 09/01/23 10/08/23 Rx Acetaminophen Tab [Tylenol] 325 mg PO Q4H PRN 09/24/23 10/08/23 History Ibuprofen [Motrin] 400 mg PO Q6HR PRN 09/24/23 10/08/23 History Naproxen Sodium [Aleve] 220 mg PO DAILY PRN 09/24/23 10/08/23 History methocarbamoL 500 mg PO BID 10/08/23 10/08/23 History Allergies Allergy/AdvReac Type Severity Reaction Status Date / Time Penicillins Allergy Dyspnea Verified 10/08/23 14:31 morphine AdvReac Hallucinati Verified 10/08/23 14:31 ons
[~2023-10-13 11:55] MED LIST changes: -LACTATED RINGERS 1,000 ML IV SCH; +ONDANSETRON 4 MG/2 ML VIAL IVP PRN; +fentaNYL (PF) 50 MCG/ML 2 ML AMP IV PRN
[2023-10-13 13:09] LABS: Glucose,Whole Blood 165 mg/dL (70-110)
[2023-10-13] MEDS: LACTATED RINGERS 1,000 ML IV SCH (13:14)
[2023-10-13] MEDS: ONDANSETRON 4 MG/2 ML VIAL IVP ONE (13:19)
[2023-10-13] MEDS: DEXAMETHASONE SOD PHOSPHATE 4 MG/ML 1 ML VIAL IV ONE (13:19)
[2023-10-13] MEDS: HEPARIN SODIUM,PORCINE 5,000 UNIT/ML 1 ML VIAL SQ PRN (13:19)
[2023-10-13] MEDS: ACETAMINOPHEN TAB 500 MG TAB PO PRN (13:19)
[2023-10-13] MEDS ORDERED: LIDOCAINE 1% INJ 10MG/ML (20 ML MDV) ONE (13:26)
[2023-10-13] MEDS ORDERED: GLYCOPYRROLATE 0.2 MG/ML 2 ML VIAL ONE (13:26)
[2023-10-13] MEDS ORDERED: PROPOFOL 10 MG/ML 20 ML VIAL IV ONE (13:26)
[2023-10-13] MEDS ORDERED: ROCURONIUM 10 MG/ML (5 ML VIAL) IV ONE (13:26)
[2023-10-13] MEDS ORDERED: MIDAZOLAM 2 MG/2 ML VIAL ONE (13:26)
[2023-10-13] MEDS ORDERED: fentaNYL (PF) 50 MCG/ML 2 ML AMP ONE ×2 (13:26→17:28)
[2023-10-13] MEDS ORDERED: SUCCINYLCHOLINE CHLORIDE 200 MG/10 ML VIAL IV ONE (13:26)
[2023-10-13] MEDS ORDERED: HYDROmorphone (PF) 1 MG/ML ONE (13:26)
[2023-10-13] MEDS ORDERED: PHENYLEPHRINE 10 MG/ML VIAL ONE (13:26)
[2023-10-13] MEDS ORDERED: NEOSTIGMINE 1 MG/ML 10 ML VIAL ONE (13:26)
[2023-10-13] MEDS: ceFAZolin 3 GM in SODIUM CHLORIDE 0.9% 100 ML IVPB PRN (13:30)
[2023-10-13] MEDS: LIDOCAINE 1%-EPI 1:100,000 20 ML VIAL SQ ONE (13:30)
[2023-10-13] MEDS: LACTATED RINGERS 1,000 ML IV ONE (14:39)
[2023-10-13 16:50] VITALS: RESP 16; TEMP 97.1
[2023-10-13 16:57] LABS: Glucose,Whole Blood 183 mg/dL (70-110)
[2023-10-13] MEDS: fentaNYL (PF) 50 MCG/ML 2 ML AMP IVP ONE (17:32)
[2023-10-13 18:12] VITALS: BP 124/70; PULSE 82
--- NOTE | 2023-10-13 18:38 | P.OP ---
Date of Procedure: 10/13/23 Description of Procedure: SURGEON: MARLENE GEE MD PREOPERATIVE DIAGNOSES: 1. Morbid obesity due to excess calories 2. Body mass index of 74.0 down to 56.7 3. Osteoarthritis of the knees. 4. Osteoarthritis of the lower back. 5. Diabetes type 2 6. Obstructive sleep apnea 7. Gastroesophageal reflux disease 8. Hypertensive heart disease 9. Complications from adjustable gastric band 10. Elevated LFTs POSTOPERATIVE DIAGNOSES: 1. Morbid obesity due to excess calories 2. Body mass index of 74.0 down to 56.7 3. Osteoarthritis of the knees. 4. Osteoarthritis of the lower back. 5. Diabetes type 2 6. Obstructive sleep apnea 7. Gastroesophageal reflux disease 8. Hypertensive heart disease 9. Complications from adjustable gastric band 10. Elevated LFTs 11. Severe fatty liver disease with hepatomegaly 12. 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 Severe peritoneal adhesions epigastrium OPERATION: 1. Robotic-assisted da Quinton Xi laparoscopic removal of adjustable gastric band and all components. 2. Robotic-assisted da Quinton Xi laparoscopic lysis of adhesions 3. Esophagogastroduodenoscopy ANESTHESIA: General with local anesthetic. ESTIMATED BLOOD LOSS: 100 mL SPECIMENS REMOVED: Adjustable gastric band with capsule Condition: stable Disposition: same day COMPLICATIONS: None. Operative Findings: 1. Severe hepatomegaly with fatty liver disease including early liver cirrhosis, macronodular adding complexity to the case 2. Densely encased adjustable gastric band removed in total including gastric port 3. Moderate bile reflux secondary to slow gastric emptying from diabetic medication 4. Moderate increase bleeding multifactorial due to naproxen recent use and liver disease 5. Patient's family advised including patient of moderate dietary restrictions including limiting high carbohydrate diet contributing to nonalcoholic fatty liver disease INDICATIONS: The patient is a 58-year-old male who presents with complications of adjustable gastric band after initial successful weight loss over 100+ pounds. Patient developed intolerance to band adjustments. Surgical options were described including removal of the band. As she has persistent pain and discomfort from the band, removal of the adjustable gastric band and port including all components was proposed. Benefits and risks of the procedure were described. Informed consent was obtained. DESCRIPTION: The patient was brought into the operating room theater. The patient was placed supine. The patient had received heparin subcutaneously for DVT prophylaxis. Additionally Peridex oral solution as an oral decontaminant was placed per anesthesia. After general induction, the abdomen was prepped and draped in standard sterile fashion. Ioban draping was placed along the abdomen. A robotic da Quinton Xi system was prepped and primed. Prior to incision, a timeout protocol was performed and confirmed with the surgical team. Attention was brought to the abdomen where the port was palpated along the epigastrium. After localizing the skin, transverse 3 cm incision was made over the adjustable gastric band port and circumferentially dissected free using Bovie cautery and blunt dissection. Severe calcified adhesions were found over the port including capsulotomy which was excised. Attention was now brought to the intra-abdominal component of the procedure for the removal of the adjustable gastric band. Incisions were proposed at 12 cm fro m the xiphoid. Proposed port sites were marked with indelible marker along the anterior axillary line bilaterally, mid clavicular line bilaterally with each port marked 10 cm from each other. A 5 mm 0 degrees laparoscopic trocar entry was performed along the left upper quadrant. The abdomen was insufflated to 15 mmHg pressure, which was tolerated well. Diagnostic laparoscopy demonstrated no injury to bowel, viscera, or mesentery. An 8 mm camera port was placed left lateral to the umbilicus at the epigastrium, 12 cm distal to the xiphoid. Next, 8-mm port was placed along the right mid ab domen. The 5 mm port was exchanged for 12 mm trocar. The robot was docked along the left lateral abdomen. The patient was repositioned in reverse Trendelenburg position, 25-degrees. A 30-degree camera was used. Using graspers for arm 3, including scissors with cautery for arm 1, and hook cautery was used for arm 4. the robotic system was docked and primed as described. Instruments were interchanged by the certified physical therapist assistant. I had sat at the console. Adjustable gastric band was embedded into dense cicatrix involving the omentum as well as perihepatic adhesions. The gastric band tubing was moderately redundant and looped within the upper abdomen requiring additional dissection. Extensive lysis of adhesions performed to dissect the tubing as well as the adjustable gastric band from the upper portion of the stomach. The band final was consistent with first a second-generation adjustable gastric band where the buckle had to be excised. Adhesional lysis over 50% of the case, 45 minutes was performed to free the band from the surrounding tissues. The port was followed with its tubing to the gastric band. The gastrohepatic ligament was scarred from prior surgery. The cicatrix around the adjustable gastric band was carefully dissected free. The anti-prolapse stitch was intact and cut. Using hot cautery, the cicatrix of the band was incised. The band was then freed. Allergan adjustable gastric band was removed in total. Care was taken to avoid any gastrotomies. The band buckle was cut. I then went to the head of the bed to perform intraoperative esophagogastroduodenoscopy to evaluate for gastritis and any full thickness injury to the stomach. An Olympus gastroscope was passed from the posterior oropharynx down to the esophagus, where the squamocolumnar junction was found LA grade B erosive esophagitis, chronic changes. The stomach was entered. Mild chronic gastritis was found along the antrum with biopsies obtained of the antrum and duodenum. Moderate bile reflux over 500 cc was aspirated from the stomach due to gastroparesis from the patient's antidiabetic medication. Retroflexion of the scope confirmed a Hill grade 2 lower esophageal valve. No full-thickness erosion from the prior band was encountered. The stomach was desufflated. The patient tolerated the procedure well. No evidence of leak was encountered from the removal of the band. The scope was removed with desufflation of the stomach. I re-scrubbed into the case. The port and band were removed in total without injury to the stomach via the epigastrium including the cut buckle. Moderate bleeding was confirmed along the incisions of the abdomen and cautery. Diagnostic laparoscopy demonstrated complete removal of all foreign body. All instruments and pneumoperitoneum were evacuated from the abdominal cavity. The port extraction site was hemostatic. The port site was irrigated using normal saline and hydrogen peroxide. The incisions were reapproximated using 4- 0 Monocryl in a subcuticular interrupted fashion. Optifoam dressing was placed over the port extraction site. At the end of the procedure, needle, sponge and instrument counts were verified correct by the claims technician. The patient had tolerated the procedure well. An abdominal binder was placed. The patient was transferred to Postanesthesia Care Unit in stable condition. Postoperative findings with intraoperative images were discussed with the patient's family including severe fatty liver disease requiring immediate adjustment of the patient's home diet. Review of medications confirmed recent NSAID exposure including naproxen increase in bleeding during the case.
== END 2023-10-13 18:23 | disposition home or self-care (01) ==
LOC: OR 11:55 → 4SSUR 15:48 → OR 18:23
PROVIDERS: ATTEND Surgery Plastic and Reconstructive Surgery
DX: K95.09 Other complications of gastric band procedure (principal); E66.01 Morbid (severe) obesity due to excess calories; E11.9 Type 2 diabetes mellitus without complications; G47.33 Obstructive sleep apnea (adult) (pediatric); I11.9 Hypertensive heart disease without heart failure; K21.9 Gastro-esophageal reflux disease without esophagitis; K66.0 Peritoneal adhesions (postprocedural) (postinfection); K74.60 Unspecified cirrhosis of liver; K76.0 Fatty (change of) liver, not elsewhere classified; M17.0 Bilateral primary osteoarthritis of knee; Z68.45 Body mass index [BMI] 70 or greater, adult; Z88.0 Allergy status to penicillin; Z88.5 Allergy status to narcotic agent; Z90.49 Acquired absence of other specified parts of digestive tract
CPT/HCPCS: 43774; 88305; J2250; J0330; J1644; J1100; J2710; J0690; J2405; J2001; J3010; J1170; J2704; J2371

== ENCOUNTER → 2023-10-17 | Outpatient (CLI) | payer BC ==
[2023-10-17 10:44] VITALS: BP 152/81; PULSE 92; RESP 14; TEMP 98; BMI 56.5
--- NOTE | 2023-10-17 11:00 | P.BASOAP ---
Subjective Progress Note Date: 10/17/23 Patient reports mostly itching. His pain is well-controlled. Patient was educated on severity of liver disease including strict discontinuation of moderate carbohydrate intake. Abdominal binder was reinforced. No infection along incisions. Close follow-up advised. Menu for holidays reviewed including avoiding buns breads [employer] macaroni and cheese. Goal protein intake 100 g daily. Alternatively, 2-week protein diet advised. Objective - Vital Signs Vital signs: Vital Signs Temp 98 F 10/17/23 10:04 Pulse 92 10/17/23 10:04 Resp 14 10/17/23 10:04 BP 152/81 10/17/23 10:04 Pulse Ox FiO2 Intake & Output 10/16/23 10/17/23 10/17/23 18:59 06:59 18:59 Weight 173.726 kg Assessment/Plan Plan: Date: 10/17/23 Initial Weight: 235.868 kg Initial BMI: 76.8 Current Weight: 173.726 kg Current BMI: 56.5 Type of Surgery: Total Volume in Band: 3 Previous Volume: Volume Removed: Volume Added: Band Size:
== END ==
LOC: BARWHC3 08:50
PROVIDERS: ATTEND Surgery Plastic and Reconstructive Surgery
DX: E66.01 Morbid (severe) obesity due to excess calories (principal); L29.9 Pruritus, unspecified; K76.9 Liver disease, unspecified; Z88.0 Allergy status to penicillin; Z68.43 Body mass index [BMI] 50.0-59.9, adult; Z88.5 Allergy status to narcotic agent
CPT/HCPCS: 99211